=== PATIENT | female | born 1960 | race Caucasian/White ===

== ENCOUNTER → 2017-07-11 | Outpatient (CLI) | payer BC ==
[~2017-07-11] MED LIST: ONCE-DAILY WEL300 MG PO; ULTRAM50 MG PO; VITAMIN C100 M3 PO; WELLBUTRIN SR100 MG PO; [UNRECOGNIZED DRUG - OTHER] PO
[2017-07-11 12:21] LABS: BUN 13 mg/dl (7-24); CHLORIDE 100 mmol/L (98-107); CREATININE 0.65 mg/dL (0.55-1.02); POTASSIUM 4.2 mmol/L (3.5-5.1); SODIUM 131 mmol/L (136-145); URIC ACID 2.9 mg/dL (2.6-6.0)
== END | disposition home or self-care (01) ==
LOC: LAB 11:10
PROVIDERS: Internal Medicine Nephrology
DX: E87.1 Hypo-osmolality and hyponatremia (principal)

== ENCOUNTER 2017-07-14 18:27 | Inpatient (IN) | payer BC ==
[~2017-07-14] VITALS: Ht 165.1 cm; Wt 80.8 kg
--- NOTE | ~2017-07-14 | PR ---
[place], [place] PROGRESS NOTE NAME: ANI SEGURA [facility] #: [id number] UNIT #: [id number] ROOM: 402 DOCTOR: ZAK DEAN MD,GREGORIO BIRTHDATE: [birth year] DOS: 07/20/2017 SUBJECTIVE: The patient noted comfortable at this time, resting on the bed without any acute distress. She has not been noted symptoms of chest pain or any abdominal pain. 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 OBJECTIVE: VITAL SIGNS: The patient showed normal temperature, respiratory rate 17, heart rate 84, blood pressure 141/87. Pulse oxygen saturation on room air was 98% saturation. HEENT: Head was atraumatic. Eyes nonicterus. NECK: Supple. CARDIOVASCULAR: S1, S2 audible. LUNGS: Noted without any wheeze or crackles at the present time. ABDOMEN: Soft, nontender. EXTREMITIES: Without any acute edema. LABORATORY DATA: BMP of the patient today was noted with a sodium level of 122. IMPRESSION: 1. Severe hyponatremia, which has been slowly resolving. 2. Neck and mediastinal lymphadenopathy. The patient had a mass, which was suspected diagnosis of small cell lung cancer, required further assessment. PLAN OF TREATMENT: Bronchoscopy planned to be done on Friday. Continuation of other plan of management and care. Usual treatment. All other supportive therapies. GREGORIO CRESPO MD CM:PNTRANS [id number] GREGORIO DEAN MD 07/21/17 0216 interface
--- NOTE | ~2017-07-14 | PR ---
[place], [place] [facility]GRESS NOTE [id number] UNIT #: [id number] ROOM: 402 DOCTOR: ZAK DEAN MD,GREGORIO BIRTHDATE: [birth year] DOS: 07/22/2017 SUBJECTIVE: The patient has been noted comfortable at this time. For bronchoscopy, n.p.o. past midnight, has not been noted any symptoms of acute chest pain, coughing or shortness of breath. The sodium level has been increased to 127 on today's labs. OBJECTIVE: VITAL SIGNS: Normal temperature, respiratory rate 18, heart rate 80, blood pressure 132/68. Pulse ox saturation on room air was 99% saturation. HEENT: No acute change. NECK: Supple. CARDIOVASCULAR: S1, S2 audible. LUNGS: Noted without any wheeze or crackles. ABDOMEN: Soft, nontender. Bowel sounds present. EXTREMITIES: Without any acute edema. 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 PLAN OF TREATMENT: No changes in plan of therapy at this time. Continue current plan of care without changes. Usual care. GREGORIO CRESPO MD CM:BRIGIDA [id number] GREGORIO DEAN MD 07/22/17 1534 interface
--- NOTE | ~2017-07-14 | PROC NOTE ---
[place], [place] PROCEDURE NOTE NAME: ANI SEGURA UNIT #: [id number] ROOM: 402 DOCTOR: ZAK DEAN MD,GREGORIO BIRTHDATE: [birth year] DOS: 07/22/2017 PREOPERATIVE DIAGNOSES: Mediastinal mass and lymphadenopathy. POSTOPERATIVE DIAGNOSES: Mediastinal mass and lymphadenopathy. There were evidence of endobronchial lesions. Partial mucus impaction noted, which was cleared up with normal saline wash. COMPLICATIONS: None. SEDATION: conscious sedation. PROCEDURE DESCRIPTION: Informed consent obtained after achieving proper sedation, airway was introduced into the mouth. Bronchoscope advanced through the airway into laryngeal area. Epiglottis and vocal cord seen. Vocal cord was noted yellowish in color moving symmetrically with movements. Bronchoscope advanced to vocal cord and tracheal lumen. Tracheal lumen was noted with a small amount of secretion, which was suctioned out with normal saline wash, sent for cultures. Right upper, right middle, right lower, left upper, lingular lobe bronchi were all noted. There were endobronchial obstructive lesions noted, especially in the right upper lobe. Mucous impaction noted in endobronchial tree, which was suctioned out. Procedure was well tolerated by the patient without any difficulty. Postoperative findings were discussed with the patient's family members in detail. The findings were also discussed with Dr. Pliar Apodaca about patient's possible discharge and to have an appointment scheduled with the thoracic surgeon in ____ [facility] for mediastinoscopy. The finding of further future plan was also discussed with the patient's daughters as well. GREGORIO CRESPO MD CM:PROCNOTE:PROCEDURE NOTE [id number] GREGORIO DEAN MD
--- NOTE | ~2017-07-14 | PR ---
[place], [place] PROGRESS NOTE [id number] UNIT #: [id number] ROOM: 402 DOCTOR: CAMACHO FOLEY,RUBEN Zavaleta BIRTHDATE: [birth year] DOS: 07/20/2017 SUBJECTIVE: The patient was seen and examined. She looks good. She is feeling well. She is going to stay in the hospital until she has her bronch on Friday. She denies nausea, vomiting or diarrhea. PHYSICAL EXAMINATION: VITAL SIGNS: Showed temperature 98, pulse 84, respiration rate 17, blood pressure 141/87. HEENT: Shows no JVD. LUNGS: With diminished breath sounds. No wheeze. HEART: Normal S1, S2. No rub. ABDOMEN: Soft, nontender. EXTREMITIES: Showed no edema. SKIN: Showed no rash. LABORATORY DATA: Hemoglobin 12.9, white count of 4.5, platelets 242. Glucose 87, BUN 10, creatinine 0.5, sodium 122, potassium 3.7, CO2 of 26, calcium 9.2, phosphorus 2.9, albumin of 3.3. ASSESSMENT AND PLAN: 1. Hyponatremia with high likelihood of syndrome of inappropriate antidiuretic hormone. She continues to have stable sodium levels and somewhat better today. Continue oral fluid restriction. Continue salt tablets. Increase protein in her diet. She can receive low dose loop diuretics for a few days a week to try to help excrete free water to improve her urine osmolalities. Can consider a dose of Friday, Friday and Friday or Friday, and Friday. 2. Lung mass, concern for malignancy. Await plans. Bronchoscopy was planned for Friday. 3. History of tobacco abuse. She is on the nicotine patch. 4. We will await further plans. Continue supportive care. RUBEN SAUER MD CM:PNTRANS [phone] RUBEN SAUER MD 07/20/172126 interface
--- NOTE | ~2017-07-14 | PR ---
[place], [place] PROGRESS NOTE [facility] [id number] UN[facility] #: [id number] ROOM: 402 DOCTOR: CAMACHO FOLEY,RUBEN Zavaleta BIRTHDATE: [birth year] DOS: 07/21/2017 SUBJECTIVE: The patient was seen and examined. She is awake and alert. She states she feels well. She denies any complaints of shortness of breath, fevers or chills. She denies nausea or vomiting. PHYSICAL EXAMINATION: VITAL SIGNS: Showed temperature 97.7, pulse 78, respiration 18, blood pressure 132/73. HEENT: Shows no JVD. LUNGS: Fairly clear with no wheeze. HEART: Normal S1, S2. No rub. ABDOMEN: Soft, nontender. EXTREMITIES: Showed no edema. SKIN: Showed no rash. LABORATORY DATA: Sodium 124, potassium 4.0, CO2 of 27, BUN 12, creatinine of 0.6, glucose of 87, calcium 9.4. ASSESSMENT AND PLAN: 1. Hyponatremia with high likelihood of syndrome of inappropriate antidiuretic hormone. Sodium levels are stable and actually somewhat improved. She is to continue an oral fluid restriction. Continue salt tablets. Increase protein in her diet. She has been receiving low doses of Lasix. Would consider Lasix 3 days a week only. Would repeat urine osmolality. 2. Lung mass with concern for malignancy. Await plans. There is a bronchoscopy planned for tomorrow. 3. History of tobacco abuse. Continue nicotine patch. 4. Await further plans. Follow labs daily while in the hospital. RUBEN SAUER MD CM:PNTRANS [id number] RUBEN SAUER MD 07/21/17 2340 interface
--- NOTE | ~2017-07-14 | PR ---
[place], [place] PROGRESS NOTE NAME: ANI SEGURA [facility] #: [id number] UNIT #: [id number] ROOM: 402 DOCTOR: ZAK DEAN MD,GREGORIO BIRTHDATE: [birth year] DOS: 07/21/2017 PULMONARY PROGRESS NOTE SUBJECTIVE: The patient noted comfortable at this time without any acute distress. The patient was not noted symptoms of any chest pain or hemoptysis. General weakness was noted to be improving. PHYSICAL EXAMINATION: VITAL SIGNS: The vital signs showed normal temperature, respiratory rate 18, heart rate 73, and blood pressure 148/81. Pulse ox saturation on room air 97% saturation. HEENT: Examination shows head was atraumatic. Eyes nonicterus. NECK: Supple. CARDIOVASCULAR: S1, S2 audible. LUNGS: Without any wheeze or crackles. ABDOMEN: Soft and nontender. Bowel sounds present. EXTREMITIES: Without any acute edema. LABORATORY DATA: The sodium level today noted on the BMP as 124. 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 PLAN OF MANAGEMENT: Bronchoscopy planned to be done tomorrow morning. No changes in other treatment of the patient will be necessary. GREGORIO CRESPO MD CM:PNTRANS [id number] GREGORIO DEAN MD 07/22/17 0022 interface
--- NOTE | ~2017-07-14 | CON ---
[place], [place] REPORT OF CONSULTATION NAME: ANI SEGURA [facility] #: [id number] UNIT #: [id number] ROOM: 402 DOCTOR: ZAK DEAN MD,GREGORIO BIRTHDATE: [birth year] DOS: 07/19/2017 PULMONARY CONSULTATION, EVALUATION AND MANAGEMENT REASON FOR CONSULTATION: Assess the patient for abnormal CT scan of the chest finding with hyponatremia. HISTORY OF PRESENT ILLNESS: A 56-year-old white female who has been monitored and managed by the primary care attending for the past several months starting in 02/2017 for the hyponatremia. Various management has been done for the consideration diagnosis of SIADH including fluid restriction, increased salt and salt tablets and other intervention. The sodium level of the patient has been noted variably controlled. The highest sodium level has been reported at 128. The patient presented to the hospital as she had developed symptoms of increasing headache with nausea at home. He also reported symptoms of nonproductive cough at times. The patient was assessed in the Emergency Room on 07/14/2017 and noted with a sodium level on admission as 119. She has been treated for that. The patient's CT scan of the head done. The chest x-ray done for the patient on 07/15/2017 and yesterday, she had a CT scan of the chest done, which reported evidence of mediastinal mass at this time. I was asked to assess the patient for that. She has not been noted symptoms of acute shortness of breath. Denies symptoms of wheezing, chest pain or any hemoptysis. REVIEW OF SYSTEMS: CONSTITUTIONAL SYMPTOMS: Besides the fatigue, denies symptoms of fever or chills. Denies abdominal pain/____ recently. EYES: Denies burning, redness, tenderness. EARS, NOSE, THROAT: No sore throat, hoarseness, otalgia, postnasal drainage or epistaxis. CARDIOVASCULAR: Denies anginal pain, edema, or pain in the lower extremities. GASTROINTESTINAL: Vomiting, which has been noted on admission is resolved. There were no symptoms of nausea or vomiting this time. There are no abdominal pain, hematemesis, melena, hematochezia, or dysphagia. GENITOURINARY: No dysuria, suprapubic pain, hematuria. MUSCULOSKELETAL: Acute joint pain, redness, or tenderness. CENTRAL NERVOUS SYSTEM: The patient was noted dizziness and the headache for the patient previously seemed to be resolved. The remaining systems were reviewed, they were noted all negative. PAST MEDICAL HISTORY: 1. The patient was known with history of longstanding tobacco use. 2. Diagnosis of SIADH with hyponatremia managed at home and as an outpatient. SOCIAL HISTORY: The patient recently as her in 04/2017. Tobacco use noted from the age of [age] years old, pack of cigarettes per day, active use. She has 3 children. Denies history of alcohol use or any illicit drug use. PAST SURGICAL HISTORY: [place], [place] REPORT OF CONSULTATION NAME: ANI SEGURA UNIT #: [id number] ROOM: 402 DOCTOR: GREGORIO DECKER MD BIRTHDATE: [birth year] 1. Two D and C. 2. Left breast biopsy, which was benign. 3. Tubal ligation. 4. Ablation of the uterus. 5. Right ovarian cyst removal. FAMILY HISTORY: Father is living at 82 years old with history of diabetes and hypertension. Mother living at 77-year-old with history of diabetes and hypertension as well. HOME MEDICATIONS: The patient was reported as Wellbutrin XL 300 mg p.o. daily. DRUG ALLERGY HISTORY: No known drug allergies. PHYSICAL EXAMINATION: GENERAL: This is a 56-year-old white female, currently comfortably resting, sitting on the bed without any acute distress. Height of 5 feet 5 inches, weight of 178 pounds, BMI 29.7. VITAL SIGNS: Normal temperature since admission, respiratory rate range between 16 and 18, heart rate 78-72, blood pressure 159/79-124/65. The pulse oxygen saturation on room air at rest 97% saturation. HEENT: Head was atraumatic. Eyes nonicterus. NECK: Supple. Oral mucosa was moist. CARDIOVASCULAR: S1, S2 is audible. LUNGS: The patient was noted without any wheeze or crackle. Breaths are noted to be [id number], generally diminished bilaterally. ABDOMEN: Soft and nontender. Bowel sounds are present. EXTREMITIES: Noted without any acute edema. MUSCULOSKELETAL: Noted without any acute deformities. CENTRAL NERVOUS SYSTEM: Cranial nerves 2-12 intact. SKIN: Visible skin, no lesions or rashes. MUSCULOSKELETAL: Without acute deformities. LABORATORY DATA: CBC on admission 07/14/2017 was noted completely normal. CMP on 07/14/2017 noted as sodium of 119 and chloride of 88. The remaining LFTs for the patient, BUN and creatinine of the patient was normal. CT scan of the head without contrast done for the patient, no acute intracranial abnormalities. The sodium level on 03/17/2017 was noted as 122. The BMP of the patient this morning, normal BUN and creatinine, sodium 121, chloride of 88. CBC of the patient that was done yesterday remains normal. Chest x-ray of the patient one-view, which was done in the Emergency Room was noted with right hilar prominence was noted, either lymphadenopathy or mass lesion. There was no lateral view done for this patient. The finding assessment was noted limited. There were no previous recent chest x-rays available for making any comparison. The CT scan of chest with contrast was completed 07/19/2017 was personally reviewed shows a mass lesion noted with size of 2.8 x 3.7 x 3.9 cm in the mediastinum and right hilar area for this patient. The narrowing of the bronchus was noted. The carinal lymph node also noted to be enlarged. Right paratracheal lymph node enlarged at 2.1 x 1.8 cm in size. Right lower lobe nodule noted at 1.4 x 1.2 cm in size and 3 mm right upper lung nodule. The left [place], [place] REPORT OF CONSULTATION NAME: ANI SEGURA UNIT #: [id number] ROOM: 402 DOCTOR: LEIGHTON DECKER MDM BIRTHDATE: [birth year] lung appeared to be clear. IMPRESSION: 1. The patient will be currently admitted to the hospital with noted syndrome of inappropriate antidiuretic hormone secretion with paraneoplastic syndrome, most likely related to the current mass lesion. Mediastinal and hilar lymph node enlargement highly suggestive of small cell lung cancer would be the primary etiology as a consideration in the clinical context. 2. History of long-term heavy nicotine abuse. Still craving for cigarette. ____ with the use of nicotine replacement patches. 3. Mild obesity was also noted. PLAN OF MANAGEMENT: Continue hyponatremia and management for the patient as already done by the Nephrology services. The patient was planned for fibrobronchoscopy that will be done for the patient on Friday by the fluroscopist. If endobronchial lesion noted, it will be biopsied. Otherwise, additional assessment could be considered such a mediastinoscopy could be the next procedure of charged followed by consideration for the needle aspiration biopsy, right lower lung nodule. PET scan could be done as an outpatient as well to assess the current suspected malignancy extent. MRI of the head for the patient could be also done for the patient's current symptoms of headache as the CT scan is not noted 100% sensitive to rule out any metastatic disease as a part of the workup cannot be considered malignancy. Other supportive therapy, plan and management. The patient will be started on the Chantix in addition to continuation of the nicotine replacement patch to overcome any coverage with nicotine withdrawal. The risk and benefits of the patient, procedure has been discussed with the patient in detail. The patient was agreeable for the procedure. The consent was obtained for this patient as well. Thanks for allowing me to participate in the care of this patient. GREGORIO CRESPO MD CM:CONSTR:REPORT OF CONSULTATION 1538 07/19/17 2145 interface
--- NOTE | ~2017-07-14 | EKG ---
[place], [place] ELECTROCARDIOGRAM REPORT NAME: ANI SEGURA UNIT #: [id number] ROOM: 402 DOCTOR: ZAK DEAN MD,GREGORIO BIRTHDATE: [birth year] DOS: 07/19/2017 Echocardiogram done for the patient on 07/19/2017 at 1:40 p.m. It shows a normal sinus rhythm. Heart rate 81 beats per minute. Left atrial enlargement was noted with left anterior fascicular block. Possible consideration for the LVH for the patient based on voltage criteria as well. GREGORIO CRESPO MD CM:EKGRPT:ELECTROCARDIOGRAM REPORT 1326 [id number] GREGORIO DEAN MD
--- NOTE | ~2017-07-14 | PR ---
[place], [place] PROGRESS NOTE NAME: ANI SEGURA UNIT #: [id number] ROOM: 402 DOCTOR: RUBEN SAUER MD BIRTHDATE: [birth year] DOS: 07/19/2017 SUBJECTIVE: The patient is seen and examined. She is awake and alert. She denies any major complaints. Denies shortness of breath, nausea, vomiting, fevers or chills. She tells me she wants to go home. PHYSICAL EXAMINATION: VITAL SIGNS: Temperature is 98.2, pulse 78, respiratory rate 18, blood pressure 115/79. HEENT: Shows no JVD. LUNGS: Diminished breath sounds, but no wheeze. HEART: Normal S1, S2. No rub. ABDOMEN: Soft, nontender. There is no organomegaly. EXTREMITIES: Showed no edema. SKIN: Showed no rash. DIAGNOSTIC DATA: BUN 11, creatinine 0.5, glucose 89, sodium 121, potassium 3.8, CO2 of 25, calcium 8.9. ASSESSMENT AND PLAN: 1. Hyponatremia with high likelihood of SIADH. The patient has had stable sodium level now for several days. She is on an oral fluid restriction and on salt tablets, which recently were increased. She should continue salt tablets and increase protein in her diet. She does have a fairly high urine osmolality and it can be considered to add a loop diuretic only at a low dose. Consider giving one dose of Lasix 20 mg today. 2. Lung mass with concern for malignancy. Await plans. There apparently will be a bronchoscopy next week. 3. History of tobacco abuse. The patient is on nicotine patch. The patient stated to me she wishes to go home. She has had a fairly stable sodium level now for the past few days. It would not be unreasonable to send her home on salt tablets and Lasix 20 mg 3 days a week with a fluid restriction and high protein diet. She would need, however, labs on Friday and likely 2-3 times per week until her sodium levels are more acceptable. [place], [place] PROGRESS NOTE NAME: ANI SEGURA UNIT #: [id number] ROOM: 402 DOCTOR: RUBEN SAUER MD BIRTHDATE: [birth year] RUBEN SAUER MD CM:PNTRANS [id number] RUBEN SAUER MD 07/19/17 215 interface
[~2017-07-14 18:27] MED LIST changes: -ONCE-DAILY WEL300 MG PO; -WELLBUTRIN SR100 MG PO
[2017-07-14 18:32] VITALS: BP 152/86
[2017-07-14 18:47] LABS: BASO % 0.2 % (0.0-1.0); EOS # 0.1 10*3/uL (0.0-0.4); EOS % 1.1 % (1.0-4.0); HEMATOCRIT 37.8 % (37.0-47.0); HEMOGLOBIN 13.6 g/dl (12.0-16.0); LYMPH # 2.7 10*3/uL (1.3-4.4); LYMPH % 33.6 % (27.0-41.0); MEAN CELL VOLUME 83.8 fl (81.0-99.0); MEAN CORPUSCULAR HGB 30.2 pg (27.0-31.0); MEAN PLATELET VOLUME 10.7 fl (9.6-12.3); MONO # 0.7 10*3/uL (0.1-1.0); MONO % 8.9 % (3.0-9.0); NEUT # 4.6 10*3/uL (2.3-7.9); NEUT % 56.1 % (47.0-73.0); PLATELET COUNT AUTOMATED 281 10*3/uL (130-400); RED BLOOD COUNT 4.51 10*6/uL (4.10-5.10); RED CELL DISTRI WIDTH 12.7 % (0-14.5); WHITE BLOOD COUNT 8.1 10*3/uL (4.8-10.8)
[2017-07-14] MEDS ORDERED: WELLBUTRIN SR100 MG PO (18:50)
[2017-07-14 19:04] LABS: ALBUMIN 4.2 gm/dl (3.1-4.5); ALKALINE PHOSPHATASE 99 U/L (45-117); BUN 13 mg/dl (7-24); CHLORIDE 88 mmol/L (98-107); CREATININE 0.58 mg/dL (0.55-1.02); LIPASE 243 U/L (73-393); POTASSIUM 4.1 mmol/L (3.5-5.1); SGOT/AST 22 IU/L (3-35); SGPT/ALT 32 U/L (12-78); TOTAL PROTEIN 7.7 gm/dL (6.4-8.2)
[2017-07-14 19:07] LABS: TROPONIN I < 0.015 ng/ml (<0.045)
[2017-07-14 19:13] LABS: SODIUM 119 mmol/L (136-145)
[2017-07-14 19:29] VITALS: BP 148/74
[2017-07-14 20:00] VITALS: BP 118/75
[2017-07-14 20:25] VITALS: BP 137/94
[2017-07-14] MEDS ORDERED: ONCE-DAILY WEL300 MG PO (23:03)
[2017-07-15 00:14] VITALS: BP 118/75
[2017-07-15 07:27] LABS: BASO % 0.3 % (0.0-1.0); EOS # 0.2 10*3/uL (0.0-0.4); HEMATOCRIT 38.9 % (37.0-47.0); HEMOGLOBIN 13.9 g/dl (12.0-16.0); LYMPH # 2.2 10*3/uL (1.3-4.4); LYMPH % 23.8 % (27.0-41.0); MEAN CELL VOLUME 84.7 fl (81.0-99.0); MEAN CORPUSCULAR HGB 30.3 pg (27.0-31.0); MEAN CORPUSCULAR HGB CONC 35.7 g/dl (33.0-37.0); MEAN PLATELET VOLUME 10.8 fl (9.6-12.3); MONO # 0.8 10*3/uL (0.1-1.0); MONO % 8.5 % (3.0-9.0); NEUT % 65.2 % (47.0-73.0); PLATELET COUNT AUTOMATED 269 10*3/uL (130-400); RED BLOOD COUNT 4.59 10*6/uL (4.10-5.10); RED CELL DISTRI WIDTH 12.8 % (0-14.5); WHITE BLOOD COUNT 9.2 10*3/uL (4.8-10.8)
[2017-07-15 08:00] VITALS: BP 143/82
[2017-07-15 08:02] LABS: ALBUMIN 3.6 gm/dl (3.1-4.5); ALKALINE PHOSPHATASE 95 U/L (45-117); BUN 9 mg/dl (7-24); CHLORIDE 89 mmol/L (98-107); CHOLESTEROL 178 mg/dL (<200); CREATININE 0.57 mg/dL (0.55-1.02); HDL CHOLESTEROL 76 mg/dl (40-60); LDL CHOLESTEROL 88 mg/dL (9-159); PHOSPHOROUS 2.5 mg/dL (2.5-4.9); POTASSIUM 3.8 mmol/L (3.5-5.1); SGOT/AST 19 IU/L (3-35); SGPT/ALT 23 U/L (12-78); SODIUM 122 mmol/L (136-145); TOTAL PROTEIN 6.9 gm/dL (6.4-8.2); TRIGLYCERIDES 70 mg/dl (<150); VLDL CHOLESTEROL 14 mg/dL (6-40)
[2017-07-15 08:07] LABS: THYROID STIM HORMONE (HS) 0.494 uIU/ml (0.358-4.75)
[2017-07-15 11:53] LABS: VITAMIN D, 25-HYDROXY 32.9 ng/mL (30-100)
[2017-07-15 12:00] VITALS: BP 119/77
[2017-07-15 16:00] VITALS: BP 130/68
[2017-07-15 20:00] VITALS: BP 126/82
[2017-07-16 00:15] VITALS: BP 147/94
[2017-07-16 05:58] LABS: ALBUMIN 3.3 gm/dl (3.1-4.5); BUN 8 mg/dl (7-24); CHLORIDE 87 mmol/L (98-107); CREATININE 0.49 mg/dL (0.55-1.02); PHOSPHOROUS 2.2 mg/dL (2.5-4.9); POTASSIUM 3.8 mmol/L (3.5-5.1); SODIUM 121 mmol/L (136-145)
[2017-07-16 08:21] VITALS: BP 143/84
[2017-07-16 12:00] VITALS: BP 131/70
[2017-07-16 16:00] VITALS: BP 103/59
[2017-07-16 20:00] VITALS: BP 113/58
[2017-07-17] VITALS: BP 121/74
[2017-07-17 07:27] LABS: BUN 10 mg/dl (7-24); CHLORIDE 87 mmol/L (98-107); CREATININE 0.47 mg/dL (0.55-1.02); POTASSIUM 3.8 mmol/L (3.5-5.1); SODIUM 121 mmol/L (136-145)
[2017-07-17 08:00] VITALS: BP 135/83
[2017-07-17 12:00] VITALS: BP 130/77
[2017-07-17 16:00] VITALS: BP 140/79
[2017-07-17 20:00] VITALS: BP 128/82; BP 146/85
[2017-07-18] VITALS: BP 131/77
[2017-07-18 06:26] LABS: BASO % 0.4 % (0.0-1.0); EOS # 0.2 10*3/uL (0.0-0.4); EOS % 2.9 % (1.0-4.0); HEMATOCRIT 38.6 % (37.0-47.0); LYMPH # 1.8 10*3/uL (1.3-4.4); LYMPH % 34.4 % (27.0-41.0); MEAN CELL VOLUME 82.8 fl (81.0-99.0); MEAN CORPUSCULAR HGB CONC 36.3 g/dl (33.0-37.0); MEAN PLATELET VOLUME 11.3 fl (9.6-12.3); MONO # 0.6 10*3/uL (0.1-1.0); MONO % 11.8 % (3.0-9.0); NEUT # 2.6 10*3/uL (2.3-7.9); NEUT % 50.3 % (47.0-73.0); PLATELET COUNT AUTOMATED 248 10*3/uL (130-400); RED BLOOD COUNT 4.66 10*6/uL (4.10-5.10); RED CELL DISTRI WIDTH 12.4 % (0-14.5); WHITE BLOOD COUNT 5.2 10*3/uL (4.8-10.8)
[2017-07-18 06:54] LABS: BUN 8 mg/dl (7-24); CHLORIDE 85 mmol/L (98-107); CREATININE 0.39 mg/dL (0.55-1.02); POTASSIUM 3.7 mmol/L (3.5-5.1); SODIUM 120 mmol/L (136-145)
[2017-07-18 08:00] VITALS: BP 135/79
[2017-07-18 12:00] VITALS: BP 125/62
[2017-07-18 16:00] VITALS: BP 139/90
[2017-07-18 20:00] VITALS: BP 130/74
[2017-07-19] VITALS: BP 124/65
[2017-07-19 06:34] LABS: BUN 11 mg/dl (7-24); CHLORIDE 88 mmol/L (98-107); CREATININE 0.52 mg/dL (0.55-1.02); POTASSIUM 3.8 mmol/L (3.5-5.1); SODIUM 121 mmol/L (136-145)
[2017-07-19 08:00] VITALS: BP 147/88
[2017-07-19 12:00] VITALS: BP 151/79
[2017-07-19 16:00] VITALS: BP 143/80
[2017-07-19 20:00] VITALS: BP 148/75
[2017-07-20] VITALS: BP 133/79
[2017-07-20 06:11] LABS: BASO % 0.4 % (0.0-1.0); EOS # 0.1 10*3/uL (0.0-0.4); EOS % 2.7 % (1.0-4.0); HEMATOCRIT 36.1 % (37.0-47.0); HEMOGLOBIN 12.9 g/dl (12.0-16.0); LYMPH # 2.1 10*3/uL (1.3-4.4); LYMPH % 47.4 % (27.0-41.0); MEAN CELL VOLUME 83.8 fl (81.0-99.0); MEAN CORPUSCULAR HGB 29.9 pg (27.0-31.0); MEAN CORPUSCULAR HGB CONC 35.7 g/dl (33.0-37.0); MEAN PLATELET VOLUME 10.9 fl (9.6-12.3); MONO # 0.6 10*3/uL (0.1-1.0); MONO % 12.8 % (3.0-9.0); NEUT # 1.6 10*3/uL (2.3-7.9); NEUT % 36.5 % (47.0-73.0); PLATELET COUNT AUTOMATED 242 10*3/uL (130-400); RED BLOOD COUNT 4.31 10*6/uL (4.10-5.10); RED CELL DISTRI WIDTH 12.6 % (0-14.5); WHITE BLOOD COUNT 4.5 10*3/uL (4.8-10.8)
[2017-07-20 06:43] LABS: ALBUMIN 3.3 gm/dl (3.1-4.5); BUN 10 mg/dl (7-24); CHLORIDE 89 mmol/L (98-107); PHOSPHOROUS 2.9 mg/dL (2.5-4.9); POTASSIUM 3.7 mmol/L (3.5-5.1); SODIUM 122 mmol/L (136-145)
[2017-07-20 08:00] VITALS: BP 124/68
[2017-07-20 12:00] VITALS: BP 141/87
[2017-07-20 16:00] VITALS: BP 142/75
[2017-07-20 20:00] VITALS: BP 136/64
[2017-07-21] VITALS: BP 137/81
[2017-07-21 06:30] LABS: BUN 12 mg/dl (7-24); CHLORIDE 90 mmol/L (98-107); CREATININE 0.62 mg/dL (0.55-1.02); SODIUM 124 mmol/L (136-145)
[2017-07-21 08:00] VITALS: BP 148/85
[2017-07-21 12:00] VITALS: BP 132/73
[2017-07-21 16:00] VITALS: BP 134/71
[2017-07-21 20:00] VITALS: BP 131/85
[2017-07-22] VITALS (7 sets, daily range): BP systolic 103–146; BP diastolic 56–83
[2017-07-22 08:34] LABS: BUN 14 mg/dl (7-24); CHLORIDE 93 mmol/L (98-107); CREATININE 0.56 mg/dL (0.55-1.02); POTASSIUM 4.1 mmol/L (3.5-5.1); SODIUM 127 mmol/L (136-145)
[2017-07-22] MEDS ORDERED: CHANTIX1 M1 PO (11:54)
[2017-07-22] MEDS ORDERED: FUROSEMIDE20 M1 PO (11:54)
[2017-07-22] MEDS ORDERED: NICOTINE PATCH1 EAC2 TD (13:00)
[2017-07-22] MEDS ORDERED: SODIUM CHLORIDE1 GM PO (13:05)
[2017-07-23 15:05] LABS: ACID FAST SPEC PROCESSING Concentration (.)
== END 2017-07-22 13:13 | disposition home or self-care (01) | DRG 643 ==
LOC: ED 18:27 → 4E 19:20 → EDHOLD 19:20 → 4E 19:49
PROVIDERS: Family Medicine; Internal Medicine; Internal Medicine Critical Care Medicine; Internal Medicine Hospice and Palliative Medicine; Nurse Practitioner Family
PROC: 0BC98ZZ Extirpation of Matter from Lingula Bronchus, Via Natural or Artificial Opening Endoscopic (ICD-10-PCS; principal; 2017-07-22)
PROC: 0BC48ZZ Extirpation of Matter from Right Upper Lobe Bronchus, Via Natural or Artificial Opening Endoscopic (ICD-10-PCS; 2017-07-22)
PROC: 0BC88ZZ Extirpation of Matter from Left Upper Lobe Bronchus, Via Natural or Artificial Opening Endoscopic (ICD-10-PCS; 2017-07-22)
PROC: 0BC58ZZ Extirpation of Matter from Right Middle Lobe Bronchus, Via Natural or Artificial Opening Endoscopic (ICD-10-PCS; 2017-07-22)
PROC: 0BC38ZZ Extirpation of Matter from Right Main Bronchus, Via Natural or Artificial Opening Endoscopic (ICD-10-PCS; 2017-07-22)
PROC: 0BC78ZZ Extirpation of Matter from Left Main Bronchus, Via Natural or Artificial Opening Endoscopic (ICD-10-PCS; 2017-07-22)
PROC: 0BC68ZZ Extirpation of Matter from Right Lower Lobe Bronchus, Via Natural or Artificial Opening Endoscopic (ICD-10-PCS; 2017-07-22)
PROC: 0BCB8ZZ Extirpation of Matter from Left Lower Lobe Bronchus, Via Natural or Artificial Opening Endoscopic (ICD-10-PCS; 2017-07-22)
PROC: 0BC18ZZ Extirpation of Matter from Trachea, Via Natural or Artificial Opening Endoscopic (ICD-10-PCS; 2017-07-22)
DX: E22.2 Syndrome of inappropriate secretion of antidiuretic hormone (principal); J98.59 Other diseases of mediastinum, not elsewhere classified; T17.590A Other foreign object in bronchus causing asphyxiation, initial encounter; T17.490A Other foreign object in trachea causing asphyxiation, initial encounter; E87.8 Other disorders of electrolyte and fluid balance, not elsewhere classified; R91.8 Other nonspecific abnormal finding of lung field; R73.9 Hyperglycemia, unspecified; F17.210 Nicotine dependence, cigarettes, uncomplicated; E66.9 Obesity, unspecified; X58.XXXA Exposure to other specified factors, initial encounter; R59.0 Localized enlarged lymph nodes; E66.3 Overweight; Z71.6 Tobacco abuse counseling; Z98.51 Tubal ligation status; Z82.49 Family history of ischemic heart disease and other diseases of the circulatory system; Z83.3 Family history of diabetes mellitus; Z84.89 Family history of other specified conditions; Z79.899 Other long term (current) drug therapy; Z82.3 Family history of stroke; Z68.29 Body mass index [BMI] 29.0-29.9, adult; Y93.89 Activity, other specified; Y92.89 Other specified places as the place of occurrence of the external cause; Y99.8 Other external cause status

== ENCOUNTER 2017-07-26 12:40 | Inpatient (IN) | payer BC ==
[~2017-07-26] VITALS: Ht 165.1 cm; Wt 80.3 kg
--- NOTE | ~2017-07-26 | CON ---
[place], [place] REPORT OF CONSULTATION NAME: ANI SEGURA [facility] #: [id number] UNIT #: [id number] ROOM: 521 DOCTOR: GREGORIO DECKER MD BIRTHDATE: [birth year] DOS: 07/27/2017 PULMONARY CONSULTATION, EVALUATION, AND MANAGEMENT REASON FOR CONSULTATION: To assess the patient for abnormal cultures of the patient noted with bronchial washing with gram-negative infection resistant to the oral antibiotics. HISTORY OF PRESENT ILLNESS: This is a 56-year-old white female who has been recently admitted to the hospital and discharged home on 07/23/2017. The patient was called in to be admitted to the hospital as the culture was noted with evidence of gram-negative infection resistant to multiple antibiotics. The patient has been reported with symptoms of positive coughing, stated the cough might be related to her bronchitis. The patient was also admitted. In the last admission, the patient was noted with finding of severe hyponatremia and mediastinal mass as well. The patient has been admitted to the hospital. The patient is currently receiving treatment with intravenous antibiotics based on the current culture results. She already has PICC line placed for possibility of infusion treatment with antibiotic as an outpatient consideration. Cough has been noted mildly decreased. Denies symptoms of chest pain, hemoptysis or acute shortness of breath. REVIEW OF SYSTEMS: CONSTITUTIONAL: She was complaining of some fatigue. Denies symptoms of fever or chills. EYES: Denies any burning, redness, or tenderness. EARS, NOSE, THROAT SYMPTOMS: Denies sore throat, hoarseness, otalgia, postnasal drainage. CARDIOVASCULAR: Denies angina pain, edema, or pain to the lower extremity. GASTROINTESTINAL: No dysphagia, nausea, vomiting, diarrhea, abdominal pain, hematemesis, melena, hematochezia, dysphagia, or recent abnormal weight loss. GENITOURINARY SYMPTOMS: Denies dysuria, suprapubic pain, or hematuria. MUSCULOSKELETAL: Denies any acute joint pain, redness, or tenderness. CENTRAL NERVOUS SYSTEM: No dizziness, headache, diplopia, syncopal episodes or headaches. Remaining systems were reviewed. They were noted all negative. PAST MEDICAL HISTORY: Noted with: 1. Current working diagnosis for possible consideration of small cell lung cancer, which has been currently planned for assessment with mediastinoscopy done as an outpatient for the patient by Dr. Jaramillo. 2. History of past longstanding tobacco use. 3. 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 SOCIAL HISTORY: The patient is . Tobacco use noted from age of [age] years old, a pack of cigarettes per day. Denies history of alcohol use, illicit drug use. She has 3 children. [place], [place] REPORT OF CONSULTATION NAME: ANI SEGURA UNIT #: [id number] ROOM: 521 DOCTOR: GREGORIO DECKER MD BIRTHDATE: [birth year] PAST SURGICAL HISTORY: Noted as: 1. Therapeutic bronchoscopy 07/22/2017. 2. D and C. 3. Left breast biopsy, which was benign. 4. Tubal ligation. 5. Ablation of the uterus. 6. Right ovarian cyst removal, which was benign as well. FAMILY HISTORY: Father living, 82 with history of diabetes, hypertension. Mother living 77, she has history of diabetes and hypertension. MEDICATIONS: Current Medications administered were noted as use of nicotine replacement patches, Lovenox, Protonix, Chantix, meropenem, and remaining dose of prednisone, which was started, to be completed for acute exacerbation of COPD previously. DRUG ALLERGIES: No known drug allergies. PHYSICAL EXAMINATION: GENERAL: This is a 56-year-old female who has been currently sitting on the chair without acute distress at this time of the assessment. Her height was recorded by the nursing staff as height of 5 feet 5 inches, weight of 80 kilograms. VITAL SIGNS: For the patient, which have been recorded shows the temperature noted as normal, respiratory rate of 18-19, heart rate of 78-91, blood pressure 152/90-133/81. Pulse oxygen saturation of the patient recorded on room air 96% saturation. HEENT: Head was atraumatic. Eyes nonicterus. NECK: Supple. CARDIOVASCULAR: S1, S2 audible. LUNGS: Noted without any wheeze or crackles. ABDOMEN: Soft, flat, nontender, bowel sounds present. EXTREMITIES: Without any acute edema. MUSCULOSKELETAL: Without acute deformities. SKIN: Visible skin, no lesions or rashes. CENTRAL NERVOUS SYSTEM: Cranial nerves 2-12 intact. MUSCULOSKELETAL: Without any acute deformities. LABORATORY DATA: CMP of the patient that was done yesterday on admission was noted with normal BUN and creatinine. Sodium 131, which was maintained close to the low normal range. The PT and PTT of the patient was noted normal yesterday. CBC of the patient that was done yesterday was noted as normal. IMAGING STUDIES: One-view chest x-ray done for the patient after hospitalization was noted with PICC line in place with evidence of right hilar mass visible, 5.8 x 3.5 cm in size, left lower lobe small area of atelectasis noted. IMPRESSION: 1. The patient with suspected diagnosis of small cell lung cancer, [place], [place] REPORT OF CONSULTATION NAME: ANI SEGURA UNIT #: [id number] ROOM: 521 DOCTOR: ZAK DEAN MD,GREGORIO BIRTHDATE: [birth year] paraneoplastic syndrome, hyponatremia noted stable, currently admitted to the hospital with acute bronchitis with Escherichia coli noted resistant to all of the oral antibiotics. 2. History of chronic nicotine dependence as well, currently using the nicotine replacement patches and also Chantix. PLAN OF MANAGEMENT: I agree with the use of the current antibiotic, meropenem with intravenous antibiotic could be missed as an outpatient at least for 5 days in total for the patient for the medical management of recurrent bronchitis. The patient's workup is already noted in progress. She has been assessed by Dr. Jaramillo at [facility] for the mediastinoscopy plan or VATS procedure whatever necessary to establish a conclusive diagnosis of the current abnormality. Other plan of therapy and care to be continued as in progress with usual care and therapies. Additional treatment changes will be recommended for the patient based on progression of the illness. GREGORIO CRESPO MD CM:CONSTR:REPORT OF CONSULTATION [id number] 07/27/17 [id number] interface
--- NOTE | ~2017-07-26 | PR ---
[place], [place] PROGRESS NOTE NAME[id number] UNIT #: [id number] ROOM: 521 DOCTOR: ZAK DEAN MD,GREGORIO BIRTHDATE: [birth year] DOS: 07/28/2017 SUBJECTIVE: The patient noted comfortable at this time without any acute distress. The coughing has been noted decreased with current antibiotic administration. Denies symptoms of chest pain, hemoptysis or any abdominal pain. There were symptoms of shortness of breath or wheezing. OBJECTIVE: VITAL SIGNS: Normal temperature, respirations 18, heart rate 85, blood pressure 115/69. Pulse oxygen saturation of the patient recorded as 97% saturation. HEENT: Examination shows head was atraumatic. Eyes nonicterus. NECK: Supple. CARDIOVASCULAR: S1, S2 is audible. LUNGS: Noted without any wheeze or crackles. ABDOMEN: Soft, nontender. Bowel sounds present. EXTREMITIES: Without any acute edema. LABORATORY DATA: WBC count 11.1. Remaining CBC was normal. Blood culture of the patient, no bacterial growth. The sodium level today was noted 132. IMPRESSION: The patient has been noted currently stable at this time for the hyponatremia, resolving acute tracheobronchitis, E. coli resistant infection, cannot be managed with oral medication receiving intravenous therapies. PLAN OF MANAGEMENT: No changes of treatment. The patient was planned for home discharge. Five more days of intravenous antibiotic to be administered for the patient. She was asked to proceed with a mediastinoscopy that would be currently planned to be done on 08/08/[address] Jaramillo in [facility]. GREGORIO CRESPO MD CM:PNTRANS [id number] GREGORIO DEAN MD 07/29/17 0001 interface
[~2017-07-26 12:40] MED LIST changes: +CHANTIX1 M1 PO; +FUROSEMIDE20 M1 PO; +NICOTINE PATCH1 EAC2 TD; +ONCE-DAILY WEL300 MG PO; +SODIUM CHLORIDE1 GM PO; +WELLBUTRIN SR100 MG PO
[2017-07-26 15:00] VITALS: BP 152/90
[2017-07-26 15:05] VITALS: BP 152/90
[2017-07-26] MEDS ORDERED: SODIUM CHLORIDE1 GM PO (15:42)
[2017-07-26 16:00] VITALS: BP 152/90
[2017-07-26 17:26] LABS: BASO % 0.4 % (0.0-1.0); EOS # 0.2 10*3/uL (0.0-0.4); EOS % 1.6 % (1.0-4.0); HEMATOCRIT 35.2 % (37.0-47.0); HEMOGLOBIN 12.3 g/dl (12.0-16.0); LYMPH # 3.3 10*3/uL (1.3-4.4); LYMPH % 33.9 % (27.0-41.0); MEAN CELL VOLUME 87.6 fl (81.0-99.0); MEAN CORPUSCULAR HGB 30.6 pg (27.0-31.0); MEAN CORPUSCULAR HGB CONC 34.9 g/dl (33.0-37.0); MEAN PLATELET VOLUME 10.6 fl (9.6-12.3); MONO # 0.6 10*3/uL (0.1-1.0); MONO % 6.1 % (3.0-9.0); NEUT # 5.6 10*3/uL (2.3-7.9); NEUT % 57.8 % (47.0-73.0); PLATELET COUNT AUTOMATED 274 10*3/uL (130-400); RED BLOOD COUNT 4.02 10*6/uL (4.10-5.10); RED CELL DISTRI WIDTH 13.2 % (0-14.5); WHITE BLOOD COUNT 9.6 10*3/uL (4.8-10.8)
[2017-07-26 17:36] LABS: ACT PARTIAL THROMBO TIME 26.3 SECONDS (20.8-31.5); INTERNATIONAL NORM RATIO 0.9 (2.0-3.5)
[2017-07-26 17:41] LABS: ALBUMIN 3.8 gm/dl (3.1-4.5); ALKALINE PHOSPHATASE 94 U/L (45-117); BUN 20 mg/dl (7-24); CHLORIDE 98 mmol/L (98-107); CREATININE 0.63 mg/dL (0.55-1.02); LIPASE 222 U/L (73-393); POTASSIUM 3.9 mmol/L (3.5-5.1); SGOT/AST 18 IU/L (3-35); SGPT/ALT 29 U/L (12-78); SODIUM 131 mmol/L (136-145); TOTAL PROTEIN 7.4 gm/dL (6.4-8.2)
[2017-07-27] VITALS: BP 118/69
[2017-07-27 08:00] VITALS: BP 150/90
[2017-07-27 12:00] VITALS: BP 133/81
[2017-07-27 16:00] VITALS: BP 122/74
[2017-07-27 20:00] VITALS: BP 117/66
[2017-07-28 00:11] VITALS: BP 128/80
[2017-07-28 06:44] LABS: BASO % 0.2 % (0.0-1.0); EOS # 0.1 10*3/uL (0.0-0.4); EOS % 0.6 % (1.0-4.0); HEMATOCRIT 36.3 % (37.0-47.0); HEMOGLOBIN 12.5 g/dl (12.0-16.0); LYMPH # 3.2 10*3/uL (1.3-4.4); LYMPH % 28.3 % (27.0-41.0); MEAN CELL VOLUME 87.5 fl (81.0-99.0); MEAN CORPUSCULAR HGB 30.1 pg (27.0-31.0); MEAN CORPUSCULAR HGB CONC 34.4 g/dl (33.0-37.0); MEAN PLATELET VOLUME 10.9 fl (9.6-12.3); MONO # 0.8 10*3/uL (0.1-1.0); MONO % 7.5 % (3.0-9.0); NEUT % 63.1 % (47.0-73.0); PLATELET COUNT AUTOMATED 259 10*3/uL (130-400); RED BLOOD COUNT 4.15 10*6/uL (4.10-5.10); RED CELL DISTRI WIDTH 13.1 % (0-14.5); WHITE BLOOD COUNT 11.1 10*3/uL (4.8-10.8)
[2017-07-28 07:15] LABS: ALBUMIN 3.4 gm/dl (3.1-4.5); ALKALINE PHOSPHATASE 84 U/L (45-117); BUN 16 mg/dl (7-24); CHLORIDE 100 mmol/L (98-107); CREATININE 0.48 mg/dL (0.55-1.02); POTASSIUM 4.1 mmol/L (3.5-5.1); SGOT/AST 15 IU/L (3-35); SGPT/ALT 21 U/L (12-78); SODIUM 132 mmol/L (136-145); TOTAL PROTEIN 6.7 gm/dL (6.4-8.2)
[2017-07-28 08:00] VITALS: BP 149/78
[2017-07-28 12:00] VITALS: BP 115/69
[2017-07-28] MEDS ORDERED: INVANZ1 GM IV (12:44)
[2017-07-28 16:00] VITALS: BP 130/72
== END 2017-07-28 18:23 | disposition home health service (06) | DRG 178 ==
LOC: 5E 12:40
PROVIDERS: Internal Medicine
PROC: 05HY33Z Insertion of Infusion Device into Upper Vein, Percutaneous Approach (ICD-10-PCS; principal; 2017-07-26)
PROC: B54MZZA Ultrasonography of Right Upper Extremity Veins, Guidance (ICD-10-PCS; principal; 2017-07-26)
DX: J15.5 Pneumonia due to Escherichia coli (principal); E22.2 Syndrome of inappropriate secretion of antidiuretic hormone; E83.41 Hypermagnesemia; R91.8 Other nonspecific abnormal finding of lung field; R73.9 Hyperglycemia, unspecified; R73.03 Prediabetes; E66.3 Overweight; L23.7 Allergic contact dermatitis due to plants, except food; F17.210 Nicotine dependence, cigarettes, uncomplicated; J20.9 Acute bronchitis, unspecified; Z16.29 Resistance to other single specified antibiotic; Z98.51 Tubal ligation status; Z71.6 Tobacco abuse counseling; Z82.49 Family history of ischemic heart disease and other diseases of the circulatory system; Z84.89 Family history of other specified conditions; Z79.899 Other long term (current) drug therapy